=== PATIENT | male | born 1970 | race Caucasian/White ===

== ENCOUNTER 2016-12-09 03:24 | Inpatient (IN) | payer MEDICARE, MEDICAID ==
[~2016-12-09] VITALS: Ht 185.4 cm; Wt 133.5 kg
[~2016-12-09 03:24] MED LIST: ALBU18HF PO; BUDE10.2 PO; DOXY100C2 PO; HYDR-3240 PO; HYDR1TAB12 PO; IPRA3AMP INH; IPRA4AER INH; NICO1PAT5 TD; PRED50TA PO
[2016-12-09] MEDS ORDERED: BUDE0.253 NEB (03:42)
[2016-12-09] MEDS ORDERED: methylPREDNISolone SOD SUCC 125 MG/2 ML ONE (03:58)
[2016-12-09] MEDS ORDERED: MAGNESIUM SULFATE PMX 2GM/50ML 50 ML IVPB ONE (04:00)
[2016-12-09] MEDS ORDERED: methylPREDNISolone SOD SUCC 125 MG/2 ML IVP ONE (04:00)
[2016-12-09 04:32] LABS: ABG COLLECTION SITE RIGHT RADIAL; COLLATERAL CIRCULATION TESTING NORMAL
[2016-12-09 04:41] LABS: BLOOD UREA NITROGEN 8 mg/dL (7-18)
[2016-12-09 04:46] LABS: IS PT STATUS REG ER OR PRE ER? YES
[2016-12-09] MEDS ORDERED: OMNIPAQUE 350 MG/ML, 100ML BOTTLE ONE (04:52)
[2016-12-09] MEDS ORDERED: ONDANSETRON 2MG/ML, 2ML IVPush ONE (05:30)
[2016-12-09] MEDS ORDERED: MORPHINE SULFATE 4 MG/ML, 1ML ONE ×2 (05:49→07:20)
[2016-12-09] MEDS ORDERED: ONDANSETRON 2MG/ML, 2ML ONE (05:49)
[2016-12-09] MEDS ORDERED: LEVOFLOXACIN/PMX 750MG/150ML 150 ML ONE (05:49)
[2016-12-09] MEDS: MORPHINE SULFATE 4 MG/ML, 1ML IVPush PRN ×2 (05:58→07:34)
[2016-12-09] MEDS ORDERED: LEVOFLOXACIN/PMX 750MG/150ML 150 ML IV ONE (06:00)
[2016-12-09] MEDS ORDERED: PROMETHAZINE 25 MG/ML, 1ML IM PRN (08:00)
[2016-12-09] MEDS ORDERED: TEMPLATE NON-FORMULARY MED. (Budesonide/Formoterol Fumarate (Symbicort 160-4.5 Mcg Inhaler HOMEMEDPO SCH (08:00)
[2016-12-09] MEDS ORDERED: DOCUSATE 100 MG CAPSULE PO PRN (08:00)
[2016-12-09] MEDS ORDERED: ACETAMINOPHEN 325 MG TABLET PO PRN (08:00)
[2016-12-09] MEDS ORDERED: ALBUTEROL/IPRATROPIUM 2.5MG/0.5MG, 3 ML ONE (08:57)
[2016-12-09] MEDS: BUDESONIDE NEB SCH ×2 (09:00→20:55)
[2016-12-09] MEDS ORDERED: ALBUTEROL/IPRATROPIUM 2.5MG/0.5MG, 3 ML NPPB PRN (09:30)
[2016-12-09 10:05] VITALS: BP 136/83
[2016-12-09] MEDS: NICOTINE 14MG/24 HR PATCH.TD24 TD SCH (10:56)
[2016-12-09] MEDS: SODIUM CHLORIDE 0.9% 1,000 ML IV SCH ×2 (10:56→15:49)
[2016-12-09] MEDS: methylPREDNISolone SOD SUCC 125 MG/2 ML IVPush SCH ×3 (10:57→20:55)
[2016-12-09] MEDS: DOXYCYCLINE 100MG TABLET PO SCH ×2 (10:57→20:55)
[2016-12-09] MEDS: ENOXAPARIN 40 MG/0.4 ML SQ SCH (10:57)
[2016-12-09] MEDS ORDERED: ALBUTEROL/IPRATROPIUM 2.5MG/0.5MG, 3 ML NEB SCH (11:00)
[2016-12-09] MEDS: morphine SULFATE 10 MG/ML, 1ML IVPush PRN ×2 (11:11→20:55)
[2016-12-09 11:30] LABS: IS PT STATUS REG ER OR PRE ER? NO
[2016-12-09] MEDS: CEFTRIAXONE PMX 2GM/50ML 50 ML IV SCH (12:29)
[2016-12-09 13:15] VITALS: BP 137/89
[2016-12-09] MEDS: ALBUTEROL/IPRATROPIUM 2.5MG/0.5MG, 3 ML NPPB SCH ×4 (14:25→23:20)
[2016-12-09 19:25] VITALS: BP 146/91
[2016-12-09 19:43] LABS: IS PT STATUS REG ER OR PRE ER? NO
[2016-12-09] MEDS: GUAIFENESIN/DM 200-20MG, 10ML UDC PO PRN (20:55)
[2016-12-10 01:06] VITALS: BP 145/98
[2016-12-10] MEDS: methylPREDNISolone SOD SUCC 125 MG/2 ML IVPush SCH ×4 (03:06→21:00)
[2016-12-10] MEDS: SODIUM CHLORIDE 0.9% 1,000 ML IV SCH ×3 (03:07→21:49)
[2016-12-10] MEDS: morphine SULFATE 10 MG/ML, 1ML IVPush PRN ×4 (03:10→22:15)
[2016-12-10 06:06] LABS: BLOOD UREA NITROGEN 21 mg/dL (7-18)
[2016-12-10 07:35] VITALS: BP 142/96
[2016-12-10] MEDS: ALBUTEROL/IPRATROPIUM 2.5MG/0.5MG, 3 ML NPPB SCH ×5 (08:30→22:00)
[2016-12-10 08:41] LABS: BLOOD UREA NITROGEN 22 mg/dL (7-18)
[2016-12-10] MEDS: CEFTRIAXONE PMX 2GM/50ML 50 ML IV SCH (09:41)
[2016-12-10] MEDS: DOXYCYCLINE 100MG TABLET PO SCH ×2 (09:42→21:48)
[2016-12-10] MEDS: BUDESONIDE NEB SCH ×2 (09:42→19:57)
[2016-12-10] MEDS: NICOTINE 14MG/24 HR PATCH.TD24 TD SCH (09:42)
[2016-12-10] MEDS: ENOXAPARIN 40 MG/0.4 ML SQ SCH (09:43)
[2016-12-10] MEDS ORDERED: INSULIN REGULAR 100 UNITS/ML, 3ML VIAL IVPush STA (10:14)
[2016-12-10] MEDS ORDERED: DEXTROSE 50%, 50ML SYRINGE IVPush STA (10:14)
[2016-12-10] MEDS ORDERED: SODIUM BICARBONATE 1 MEQ/ML, 50ML VIAL IVPush ONE (10:28)
[2016-12-10] MEDS: HYDROcodone/APAP 5/325 TABLET PO PRN ×2 (12:36→21:48)
[2016-12-10 13:54] VITALS: BP 147/84
[2016-12-10 15:56] LABS: BLOOD UREA NITROGEN 21 mg/dL (7-18)
[2016-12-10 18:47] VITALS: BP 141/83
[2016-12-10] MEDS ORDERED: SODIUM POLYSTYRENE SULFONATE ORAL SUSP PO ONE (19:00)
[2016-12-10] MEDS ORDERED: MORPHINE SULFATE 4 MG/ML, 1ML ONE (22:27)
[2016-12-11 00:40] VITALS: BP 154/77
[2016-12-11] MEDS: methylPREDNISolone SOD SUCC 125 MG/2 ML IVPush SCH ×2 (03:52→09:26)
[2016-12-11] MEDS ORDERED: MORPHINE SULFATE 4 MG/ML, 1ML ONE ×2 (04:27→23:26)
[2016-12-11] MEDS: SODIUM CHLORIDE 0.9% 1,000 ML IV SCH ×3 (04:38→23:30)
[2016-12-11] MEDS: morphine SULFATE 10 MG/ML, 1ML IVPush PRN ×4 (04:38→23:30)
[2016-12-11] MEDS: ALBUTEROL/IPRATROPIUM 2.5MG/0.5MG, 3 ML NPPB SCH ×7 (04:56→22:50)
[2016-12-11] MEDS: HYDROcodone/APAP 5/325 TABLET PO PRN ×2 (05:55→21:17)
[2016-12-11 06:00] LABS: BLOOD UREA NITROGEN 24 mg/dL (7-18)
[2016-12-11 07:05] VITALS: BP 156/108
[2016-12-11 07:48] VITALS: BP 171/117
[2016-12-11 09:24] LABS: ABG COLLECTION SITE RIGHT RADIAL; COLLATERAL CIRCULATION TESTING NORMAL
[2016-12-11] MEDS: CEFTRIAXONE PMX 2GM/50ML 50 ML IV SCH (09:26)
[2016-12-11] MEDS: BUDESONIDE NEB SCH ×2 (09:26→21:00)
[2016-12-11] MEDS: NICOTINE 14MG/24 HR PATCH.TD24 TD SCH (12:08)
[2016-12-11] MEDS: ENOXAPARIN 40 MG/0.4 ML SQ SCH (12:09)
[2016-12-11] MEDS: DOXYCYCLINE 100MG TABLET PO SCH ×2 (12:09→21:16)
[2016-12-11] MEDS: BUSPIRONE 10 MG TABLET PO SCH ×3 (12:09→21:16)
[2016-12-11 13:49] VITALS: BP 157/103
[2016-12-11] MEDS: LORazepam 2 MG/ML, 1ML IVPush PRN ×2 (14:33→21:16)
[2016-12-11] MEDS: methylPREDNISolone SOD SUCC 40 MG/ML IVPush SCH ×2 (14:48→21:16)
[2016-12-11 18:55] VITALS: BP 157/84
[2016-12-11] MEDS: GUAIFENESIN/DM 200-20MG, 10ML UDC PO PRN (21:16)
[2016-12-12 01:42] VITALS: BP 164/108
[2016-12-12] MEDS: methylPREDNISolone SOD SUCC 40 MG/ML IVPush SCH ×5 (01:48→20:18)
[2016-12-12] MEDS: HYDROcodone/APAP 5/325 TABLET PO PRN ×3 (01:48→23:05)
[2016-12-12] MEDS ORDERED: MORPHINE SULFATE 4 MG/ML, 1ML ONE ×3 (02:45→20:14)
[2016-12-12] MEDS: morphine SULFATE 10 MG/ML, 1ML IVPush PRN ×4 (02:49→20:18)
[2016-12-12 06:03] LABS: BLOOD UREA NITROGEN 24 mg/dL (7-18)
[2016-12-12] MEDS: ALBUTEROL/IPRATROPIUM 2.5MG/0.5MG, 3 ML NPPB SCH ×7 (07:30→22:15)
[2016-12-12 08:23] VITALS: BP 168/92
[2016-12-12] MEDS: SODIUM CHLORIDE 0.9% 1,000 ML IV SCH (08:38)
[2016-12-12] MEDS: BUSPIRONE 10 MG TABLET PO SCH ×3 (08:39→20:04)
[2016-12-12] MEDS: NICOTINE 14MG/24 HR PATCH.TD24 TD SCH (08:39)
[2016-12-12] MEDS: DOXYCYCLINE 100MG TABLET PO SCH ×2 (08:39→20:04)
[2016-12-12] MEDS: BUDESONIDE NEB SCH ×2 (08:39→21:00)
[2016-12-12] MEDS ORDERED: DEXTROSE 50%, 50ML SYRINGE IVPush PRN (09:30)
[2016-12-12] MEDS ORDERED: GLUCAGON 1 MG IM PRN (09:30)
[2016-12-12] MEDS ORDERED: DEXTROSE 4 GM TAB.CHEW PO PRN (09:30)
[2016-12-12] MEDS: LORazepam 2 MG/ML, 1ML IVPush PRN ×3 (09:36→23:05)
[2016-12-12] MEDS: CEFTRIAXONE PMX 2GM/50ML 50 ML IV SCH (09:58)
[2016-12-12] MEDS: ENOXAPARIN 40 MG/0.4 ML SQ SCH (09:59)
[2016-12-12] MEDS: INSULIN ASPART 100 UNITS/ML, PEN SQ-INSULIN SCH ×3 (13:35→20:19)
[2016-12-12 14:28] VITALS: BP 170/96
[2016-12-12] MEDS ORDERED: ENALAPRILAT 1.25 MG/ML, 2ML IV PRN (16:00)
[2016-12-12 19:47] VITALS: BP 163/103
[2016-12-12] MEDS: SODIUM CHLORIDE FLUSH 10ML SYR IVF SCH (20:04)
[2016-12-13] MEDS ORDERED: MORPHINE SULFATE 4 MG/ML, 1ML ONE (02:10)
[2016-12-13] MEDS: morphine SULFATE 10 MG/ML, 1ML IVPush PRN ×2 (02:13→10:54)
[2016-12-13 02:14] VITALS: BP 169/98
[2016-12-13] MEDS: ALBUTEROL/IPRATROPIUM 2.5MG/0.5MG, 3 ML NPPB SCH (06:00)
[2016-12-13 06:09] LABS: BLOOD UREA NITROGEN 22 mg/dL (7-18)
[2016-12-13] MEDS: INSULIN ASPART 100 UNITS/ML, PEN SQ-INSULIN SCH ×2 (07:00→11:00)
[2016-12-13 07:57] VITALS: BP 146/89
[2016-12-13] MEDS: BUDESONIDE NEB SCH (09:00)
[2016-12-13] MEDS: SODIUM CHLORIDE FLUSH 10ML SYR IVF SCH (09:00)
[2016-12-13] MEDS ORDERED: HYDROCHLOROTHIAZIDE 12.5 MG CAPSULE PO SCH (09:00)
[2016-12-13] MEDS: methylPREDNISolone SOD SUCC 40 MG/ML IVPush SCH (09:28)
[2016-12-13] MEDS: CEFTRIAXONE PMX 2GM/50ML 50 ML IV SCH (09:28)
[2016-12-13] MEDS: ENOXAPARIN 40 MG/0.4 ML SQ SCH (09:28)
[2016-12-13] MEDS: DOXYCYCLINE 100MG TABLET PO SCH (09:30)
[2016-12-13] MEDS: BUSPIRONE 10 MG TABLET PO SCH (09:30)
[2016-12-13] MEDS: NICOTINE 14MG/24 HR PATCH.TD24 TD SCH (09:30)
[2016-12-13] MEDS ORDERED: GUAIFENESIN 200 MG TABLET PO SCH (11:00)
[2016-12-13] MEDS ORDERED: ALBUTEROL/IPRATROPIUM 2.5MG/0.5MG, 3 ML NPPB SCH (11:00)
[2016-12-13] MEDS ORDERED: LORazepam 1MG TABLET ONE (14:09)
[2016-12-13] MEDS: HYDROcodone/APAP 5/325 TABLET PO PRN (14:16)
[2016-12-13] MEDS ORDERED: LORazepam 0.5MG TABLET PO PRN (14:30)
== END 2016-12-13 14:37 | disposition left against medical advice (07) | DRG 871 ==
LOC: ED 05:19 → EDIP 07:50 → 4EST 09:41
PROVIDERS: ADMIT Hospitalist; ATTEND Hospitalist
DX: A41.9 Sepsis, unspecified organism (principal); J18.9 Pneumonia, unspecified organism; J96.21 Acute and chronic respiratory failure with hypoxia; J96.22 Acute and chronic respiratory failure with hypercapnia; J44.1 Chronic obstructive pulmonary disease with (acute) exacerbation; I50.20 Unspecified systolic (congestive) heart failure; J44.0 Chronic obstructive pulmonary disease with (acute) lower respiratory infection; E66.01 Morbid (severe) obesity due to excess calories; E87.5 Hyperkalemia; F17.210 Nicotine dependence, cigarettes, uncomplicated; F41.9 Anxiety disorder, unspecified; G47.33 Obstructive sleep apnea (adult) (pediatric); R73.9 Hyperglycemia, unspecified; I07.1 Rheumatic tricuspid insufficiency; T38.0X5A Adverse effect of glucocorticoids and synthetic analogues, initial encounter; Z68.30 Body mass index [BMI] 30.0-30.9, adult; Z91.14 Patient's other noncompliance with medication regimen; Z91.19 Patient's noncompliance with other medical treatment and regimen; Z88.8 Allergy status to other drugs, medicaments and biological substances; Z82.49 Family history of ischemic heart disease and other diseases of the circulatory system; Z82.3 Family history of stroke
CPT/HCPCS: 36415; 36600; 71010; 71275; 80048; 82040; 82803; 82962; 83735; 83880; 84100; 84145; 84484; 85025; 87040; 87070; 87205; 93005; 93306; 94640; 94660; 96365; 96366; 96375; 96376; J0696; J1650; J1815; J1956; J2405; J7620; Q9967; J2060; J2270; J2920; J2930; J3475; J7030